=== PATIENT | male | born 1935 ===

== ENCOUNTER 2016-10-28 09:37 | Day surgery (SDC) | payer MEDICARE, MEDICAID ==
[2016-10-22 15:09] VITALS: BMI 27.2
[~2016-10-28 09:37] MED LIST: Gentamicin 160 MG in Sodium Chloride 0.9% 100 ML IVPB ONE
[2016-10-28] MEDS ORDERED: Ciprofloxacin 400mg/200ml D5W 400 MG/200 ML BAG IVPB ONE (10:58)
[2016-10-28] MEDS ORDERED: Iohexol 240 (50 ml) ONE (11:40)
[2016-10-28] MEDS ORDERED: Lidocaine 2% Jelly (Uro-Jet) ONE (11:40)
[2016-10-28] MEDS ORDERED: Propofol 10 mg/ml Inj (20 ML) ONE (11:43)
[2016-10-28] MEDS ORDERED: Midazolam 2 MG/2 ML VIAL ONE (11:43)
[2016-10-28] MEDS ORDERED: Lidocaine Hydrochloride 5 ML INJ ONE (11:44)
[2016-10-28] MEDS ORDERED: HYDROmorphone 0.5 mg/0.5 ml ISec IVP PRN (11:59)
--- NOTE | 2016-10-28 12:03 | PCM.SURG1 ---
Surgeon's Initial Post Op Note - Surgeon's Notes Surgeon: Deangelo Office Lead: N/A Type of Anesthesia: General LMA, General Mask Anesthesia Administered By: staff Pre-Operative Diagnosis: Urethral stricture Operative Findings: pendulous urethral stricture Post-Operative Diagnosis: Urethral stricture Operation Performed: Cysto [place] Dil. OIU Specimen/Specimens Removed: N/A Estimated Blood Loss: EBL {In ML}: 0 Blood Products Given: N/A Drains Used: No Drains Post-Op Condition: Good Date of Surgery/Procedure: 10/28/16 Time of Surgery/Procedure: 12:03
--- NOTE | 2016-10-28 12:35 | OP ---
PROCEDURE DATE: 10/28/2016 PREOPERATIVE DIAGNOSIS: Urethral stricture. POSTOPERATIVE DIAGNOSIS: Urethral stricture. PROCEDURES: Cystoscopy, balloon dilatation and optical internal urethrotomy. FINDINGS: A mid pendulous urethral stricture. PROCEDURE: Attempt was made to cystoscope the patient, but the scope would not pass through the meat us. A guidewire was passed through the meatus, it passed the urethral stricture, and a balloon apolinar ter was passed over it. The urethra was dilated. The balloon was then removed and the patient was c ystoscoped with a #21 Storz panendoscope. There was noted to be several fibers of the stricture whic h were not fractured. This was cut with an optical internal urethrotomy instrument. The scope was t hen passed into the posterior urethra which was normal. Prostatic urethra showed evidence of previou s resection, but there was a significant median lobe. The bladder showed +3 trabeculation of bladder . No evidence of urothelial tumors or stones. Based on these findings, the patient should improve a fter stricture dilatation. If he continues to have symptoms, resection of the median lobe may be con sidered. Fernando Bright MD cc: [id number] TT: 10/28/2016 12:34:54 or
--- NOTE | 2016-10-28 12:59 | RAD ---
HISTORY: URETHRAL STRICTURE COMPARISON: No prior. FINDINGS: BOWEL: Normal. No obstruction. No free air. BONES: Normal. OTHER FINDINGS: None. IMPRESSION: No significant or acute findings to account for/ related to the clinical presentation.
[2016-10-28] MEDS ORDERED: Lactated Ringer's 500 ML IV ONE (13:15)
[2016-10-28 13:59] VITALS: O2SAT 18
[2016-10-28 15:25] VITALS: BP 132/78; PULSE 65; RESP 20; TEMP 98
== END 2016-10-28 14:30 | disposition home or self-care (01) ==
LOC: C.SDS 09:37
PROVIDERS: ATTEND Urology
DX: N35.8 Other urethral stricture (principal); N32.89 Other specified disorders of bladder
CPT/HCPCS: 52276; 74000; 82948; C1758; C1769; J0744; J1580; J7120